=== PATIENT | female | born 1990 | race Caucasian/White ===

== ENCOUNTER → 2016-12-18 | Outpatient (CLI) | payer OTHER ==
--- NOTE | 2016-12-18 09:12 | US ---
EXAMINATION TYPE: US abdomen complete DATE OF EXAM: 12/18/2016 8:49 AM COMPARISON: 04/2015 CLINICAL HISTORY: R10.84 Abd Pain. Recent episode of pain with nausea for 2 days EXAM MEASUREMENTS: Liver Length: 21.4cm Gallbladder Wall: 0.1cm CBD: 0.4cm Spleen: 13.8cm Right Kidney: 10.5 x 5.0 x 4.7cm Left Kidney: 11.4 x 4.9 x 5.6cm TECHNOLOGIST IMPRESSION: Pancreas: slightly heterogeneous in appearance Liver: enlarged, coarse in appearance and difficult to penetrate Gallbladder: +NAE sign, multiple shadowing stones seen completely filling GB, no wall thickening Evidence for sonographic Adam's sign: no CBD: wnl Spleen: enlarged Right Kidney: wnl Left Kidney: wnl Upper IVC: wnl Abd Aorta: bifurcation gassed out, otherwise wnl IMPRESSION: 1. Wall echo shadow complex within the gallbladder. Correlate for large gallstone an acute cholecysti tis. 2. Fatty infiltration liver. Hepatomegaly is present.
== END | disposition home or self-care (01) ==
LOC: RADUSWWP 08:26
PROVIDERS: ATTEND Surgery
DX: K76.0 Fatty (change of) liver, not elsewhere classified (principal)
CPT/HCPCS: 76700

== ENCOUNTER 2017-01-14 08:12 | Day surgery (SDC) | payer OTHER ==
[2017-01-11 12:42] VITALS: BMI 36.0
[~2017-01-14 08:12] MED LIST: DEXAMETHASONE SOD PHOSPHATE 10 MG/ML 1 ML VIAL IV ONE; HEPARIN SODIUM,PORCINE 5,000 UNIT/ML 1 ML VIAL SQ ONE; LACTATED RINGERS 1,000 ML IV SCH; LIDOCAINE 1% 20 ML VIAL (10MG/ML) FOR IV START INTRADERMA PRN; MIDAZOLAM 2 MG/2 ML VIAL IV PRN; ONDANSETRON 4 MG/2 ML VIAL IVP ONE; SCOPOLAMINE 1.5MG/72HR PATCH TRANSDERM ONE; ceFAZolin 2 GM in SODIUM CHLORIDE 0.9% 100 ML IVPB ONE
[2017-01-14 08:37] LABS: Glucose,Whole Blood 211 mg/dL (75-99)
[2017-01-14] MEDS ORDERED: SUCCINYLCHOLINE CHLORIDE 100 MG/5 ML SYR IV ONE (09:10)
[2017-01-14] MEDS ORDERED: NEOSTIGMINE 1 MG/ML 10 ML VIAL ONE (09:10)
[2017-01-14] MEDS ORDERED: fentaNYL (PF) 50 MCG/ML 2 ML AMP ONE (09:10)
[2017-01-14] MEDS ORDERED: PROPOFOL 10 MG/ML 20 ML VIAL IV ONE (09:10)
[2017-01-14] MEDS ORDERED: MIDAZOLAM 2 MG/2 ML VIAL ONE (09:10)
[2017-01-14] MEDS ORDERED: LIDOCAINE 1% INJ 10MG/ML (20 ML MDV) ONE (09:10)
[2017-01-14] MEDS ORDERED: KETOROLAC 30 MG/ML 1 ML VIAL ONE (09:10)
[2017-01-14] MEDS ORDERED: ROCURONIUM BROMIDE 10 MG/ML 10 ML VIAL IV ONE (09:10)
[2017-01-14] MEDS ORDERED: ESMOLOL 100 MG/10 ML VIAL ONE (09:10)
[2017-01-14] MEDS ORDERED: GLYCOPYRROLATE 0.2 MG/ML 2 ML VIAL ONE (09:10)
[2017-01-14] MEDS ORDERED: BUPIVACAIN-EPI 0.25%-1:200,000 30 ML VIAL SQ ONE (09:38)
[2017-01-14 11:15] VITALS: RESP 16; TEMP 97.4
--- NOTE | 2017-01-14 11:20 | P.OP ---
Date of Procedure: 01/14/17 Preoperative Diagnosis: Acute cholecystitis Postoperative Diagnosis: Chronic cholecystitis Procedure(s) Performed: Robot assisted laparoscopic choelcystectomy Anesthesia: CHULA Surgeon: Talita Almonte Pathology: other Condition: stable Disposition: PACU Operative Findings: Chronic inflamation of the gall bladder Adhesion band in the left lower quadrant Hepatomegaly due to fatty liver Umbilical hernia with diastasis Description of Procedure: Patient is a 26-year-old female who presented with right upper quadrant pain and a clinical diagnosis of chronic cholecystitis was made. After appropriate informed consent and answering all the patient's questions patient taken the operating placement position and given general anesthesia with endotracheal intubation. After an unsuccessful attempt to use the Veress needle for insufflation at the infraumbilical region left upper quadrant was identified and OPTIVIEW technique was used to enter the abdominal cavity. Abdomen was insufflated to 15 mm of mercury. Three 8 mm ports were then placed for the robot in the left upper quadrant and right upper quadrant. The 5 mm port in the infraumbilical crease was replaced with a 12 mm port and a 5mm assist port was placed in the left lower quadrant. Once ports were then placed the patient was placed in appropriate position of left side down and reverse Trendelenburg. The robot was docked and Prograsp was taken in arm 3, [place] was taken and later replaced with bipolar fenestrated forceps in arm 2. Camera was through the 12 mm umbilical port site. And a hook cautery was taken in the arm 1. Gallbladder was retracted cephalad and superiorly. Inflammatory adhesions were taken down with the help of electrocautery. Appropriate critical view was obtained in cystic duct and artery were isolated. 2 clips proximally and 1 distally were plced in the artery and cystic duct and then and transected sharply with the help of scissors. The gallbladder was then taken off the gallbladder fossa with the help of electrocautery. There was inadvertent hole in the gallbladder which resulted in leakage of bile. All that was sucked dry. The abdomen was thoroughly irrigated and sucked dry. Gallbladder was then placed in Endo Catch bag and removed through 12 port site after undocking the robot. Abdomen was then again visualized and completely irrigated and sucked dry. 12 mm port site was closed with the help of a Wayne Sung under direct laparoscopic view using 0 Vicryl. At this point the procedure was terminated and all ports were removed. Local anesthesia infiltrated into the incisions skin was closed with 4-0 Monocryl and Dermabond was applied. Patient is tolerated the porcedure well with no complications. She was extubated and taken to recovery room in stable condition.
[2017-01-14 11:23] LABS: Glucose,Whole Blood 307 mg/dL (75-99)
[2017-01-14] MEDS ORDERED: INSULIN LISPRO (humaLOG) 300 UNIT/3 ML VIAL SQ ONE (11:37)
[2017-01-14] MEDS: HYDROmorphone 1 MG/ML 1 ML SYRINGE IVP PRN ×2 (11:43→11:59)
[2017-01-14] MEDS ORDERED: HYDROcodone/APAP 5-325MG 1 EACH TAB PO ONE (13:13)
[2017-01-14 13:15] LABS: Glucose,Whole Blood 306 mg/dL (75-99)
[2017-01-14 14:34] VITALS: BP 122/75; PULSE 71
== END 2017-01-14 15:05 | disposition home or self-care (01) ==
LOC: OR 08:12
PROVIDERS: ATTEND Surgery
DX: K80.10 Calculus of gallbladder with chronic cholecystitis without obstruction (principal); K66.0 Peritoneal adhesions (postprocedural) (postinfection); K76.0 Fatty (change of) liver, not elsewhere classified; K42.9 Umbilical hernia without obstruction or gangrene; R73.03 Prediabetes; Z79.899 Other long term (current) drug therapy; Z88.0 Allergy status to penicillin
CPT/HCPCS: 47562; S2900; 81025; 88304

== ENCOUNTER → 2017-01-20 | Outpatient (CLI) | payer OTHER ==
[2017-01-20 11:15] LABS: Basophils # (A) 0.1 k/uL (0-0.2); Basophils % (A) 1 %; CH 25.5; CHCM 31.4; Eosinophils # (A) 0.6 k/uL (0-0.7); Eosinophils % (A) 8 %; HCT 39.2 % (34.0-46.0); HDW 2.47; HGB 12.3 gm/dL (11.4-16.0); Hypochromasia Slight; Luc % (Auto) 2; Lymphocytes # (A) 1.9 k/uL (1.0-4.8); Lymphocytes % (A) 23 %; MCH 25.6 pg (25.0-35.0); MCHC 31.4 g/dL (31.0-37.0); MCV 81.6 fL (80.0-100.0); Mean Platelet Volume 8.3; Monocytes # (A) 0.4 k/uL (0-1.0); Monocytes % (A) 4 %; Neutrophils # (A) 5.2 k/uL (1.3-7.7); Neutrophils % (A) 62 %; RDW 13.8 % (11.5-15.5); WBC 8.4 k/uL (3.8-10.6); WBC (Perox) 8.63
[2017-01-20 11:35] LABS: ALT 52 U/L (9-52); AST 25 U/L (14-36); Alkaline Phosphatase 80 U/L (38-126); Anion Gap 13 mmol/L; Blood Urea Nitrogen 9 mg/dL (7-17); Calcium 9.6 mg/dL (8.4-10.2); Carbon Dioxide 25 mmol/L (22-30); Chloride 101 mmol/L (98-107); Cholesterol 228 mg/dL (<200); Glucose 229 mg/dL (74-99); HDL Cholesterol 54 mg/dL (40-60); Non-African American GFR(MDRD) >60 (>60 ml/min/1.73 sqM); Potassium 4.4 mmol/L (3.5-5.1); Sodium 139 mmol/L (137-145); Total Bilirubin 0.9 mg/dL (0.2-1.3); Triglycerides 224 mg/dL (<150)
== END | disposition home or self-care (01) ==
LOC: LABWHC1 10:53
PROVIDERS: ATTEND Nurse Practitioner Adult Health
DX: E11.9 Type 2 diabetes mellitus without complications (principal)
CPT/HCPCS: 36415; 80053; 80061; 84439; 84443; 85025

== ENCOUNTER 2017-06-04 04:12 | Emergency (ER) | payer OTHER ==
[2017-06-04 04:20] VITALS: BP 122/73; PULSE 78; RESP 18; TEMP 97.8
[2017-06-04] MEDS ORDERED: predniSONE 50 MG TAB PO STA (05:03)
[2017-06-04] MEDS ORDERED: LORATADINE 10 MG TAB PO STA (05:03)
--- NOTE | 2017-06-04 05:07 | ED ---
General Adult HPI - General Chief complaint: Skin/Abscess/Foreign Body Stated complaint: Itching Time Seen by Provider: 06/04/17 04:37 Source: patient, RN notes reviewed Mode of arrival: ambulatory Limitations: no limitations - History of Present Illness Initial comments: Patient is a pleasant 26-year-old female presenting to the emergency department complaining of rash. Rash is mostly on the arms and legs. Rash is pruritic. Patient states there was a stray cat in her basement. Patient has looked for bedbugs and has not noticed any. No history of similar problems previously. Patient is unclear what could be causing this. Patient states she cannot sleep because of itching. - Related Data Home Medications Medication Instructions Recorded Confirmed Sertraline [Zoloft] 50 mg PO DAILY 01/11/17 06/04/17 Previous Rx's Medication Instructions Recorded HYDROcodone/APAP 5-325MG [[place] 1 tab PO Q4HR PRN #18 tab 01/14/17 5-325] predniSONE 20 mg PO DAILY #5 tab 06/04/17 Allergies Allergy/AdvReac Type Severity Reaction Status Date / Time Penicillins Allergy Rash/Hives Verified 06/04/17 04:20 Review of Systems ROS Statement: Those systems with pertinent positive or pertinent negative responses have been documented in the HPI. ROS Other: All systems not noted in ROS Statement are negative. Constitutional: Denies: fever Eyes: Denies: eye pain ENT: Denies: ear pain Respiratory: Denies: cough Cardiovascular: Denies: chest pain Endocrine: Denies: fatigue Gastrointestinal: Denies: abdominal pain Genitourinary: Denies: dysuria Musculoskeletal: Denies: back pain Skin: Reports: rash, pruritus Neurological: Denies: headache Past Medical History Past Medical History: Diabetes Mellitus Additional Past Medical History / Comment(s): DIET CONTROL History of Any Multi-Drug Resistant Organisms: None Reported Past Surgical History: Section, Cholecystectomy Past Anesthesia/Blood Transfusion Reactions: No Reported Reaction Past Psychological History: Depression Smoking Status: Never smoker Past Alcohol Use History: None Reported Past Drug Use History: None Reported - Past Family History Mother History Unknown: Yes Family Medical History: No Reported History General Exam Limitations: no limitations General appearance: alert, in no apparent distress Head exam: Present: atraumatic Eye exam: Present: normal appearance ENT exam: Present: normal oropharynx Neck exam: Present: normal inspection Respiratory exam: Present: normal lung sounds bilaterally Cardiovascular Exam: Present: regular rate, normal rhythm GI/Abdominal exam: Present: soft. Absent: tenderness Extremities exam: Absent: pedal edema Neurological exam: Present: alert Psychiatric exam: Present: normal affect, normal mood Skin exam: Present: rash (Bilateral lower legs and upper arms with several areas of lesions each less than 3-4 mm. Some with central puncture.) Course Vital Signs 06/04/17 04:18 Temperature 97.8 F Pulse Rate 78 Respiratory 18 Rate Blood Pressure 122/73 O2 Sat by Pulse 99 Oximetry Medical Decision Making - Medical Decision Making Rash consistent with insect bites. Disposition Clinical Impression: Insect bite Disposition: HOME SELF-CARE Condition: Stable Instructions: Insect Bite or Sting (ED) Additional Instructions: Continue [id number] Claritin as needed. [id number] 1% hydrocortisone cream to affected area twice daily as needed. Return for fever, redness, increased rash, worsening symptoms or other concerns. Prescriptions: predniSONE 20 mg PO DAILY #5 tab Referrals: Alexi Ramos MD [Primary Care Provider] - 1-2 days Time of Disposition: 05:07
== END 2017-06-04 05:27 | disposition home or self-care (01) ==
LOC: EC 04:12
DX: S80.861A Insect bite (nonvenomous), right lower leg, initial encounter (principal); S80.862A Insect bite (nonvenomous), left lower leg, initial encounter; S40.861A Insect bite (nonvenomous) of right upper arm, initial encounter; S40.862A Insect bite (nonvenomous) of left upper arm, initial encounter; Z88.0 Allergy status to penicillin; Z79.899 Other long term (current) drug therapy; W57.XXXA Bitten or stung by nonvenomous insect and other nonvenomous arthropods, initial encounter
CPT/HCPCS: 99282; J7512

== ENCOUNTER 2018-03-13 22:43 | Emergency (ER) | payer OTHER ==
[2018-03-14] MEDS ORDERED: MAG HYDROX/AL HYDROX/SIMETH 30 ML, HYOSCYAMINE ELIXIR 10 ML, CIMETIDINE HCL 300 MG, LID... PO STA ×4 (00:14)
[2018-03-14] MEDS ORDERED: SODIUM CHLORIDE 0.9% 1,000 ML IV ONE (00:14)
[2018-03-14 01:10] LABS: Basophils % (A) 1 %; Eosinophils # (A) 0.2 k/uL (0-0.7); Eosinophils % (A) 3 %; HCT 36.9 % (34.0-46.0); Lymphocytes # (A) 2.3 k/uL (1.0-4.8); Lymphocytes % (A) 27 %; MCH 24.9 pg (25.0-35.0); MCHC 32.4 g/dL (31.0-37.0); MCV 76.9 fL (80.0-100.0); Mean Platelet Volume 8.9; Monocytes # (A) 0.4 k/uL (0-1.0); Monocytes % (A) 4 %; Neutrophils # (A) 5.6 k/uL (1.3-7.7); Neutrophils % (A) 65 %; Platelet Count 289 k/uL (150-450); RDW 14.6 % (11.5-15.5); WBC 8.7 k/uL (3.8-10.6)
[2018-03-14 01:27] LABS: ALT 31 U/L (9-52); AST 18 U/L (14-36); Albumin 4.2 g/dL (3.5-5.0); Alkaline Phosphatase 68 U/L (38-126); Amylase 64 U/L (30-110); Anion Gap 15 mmol/L; Blood Urea Nitrogen 14 mg/dL (7-17); Calcium 9.6 mg/dL (8.4-10.2); Carbon Dioxide 23 mmol/L (22-30); Chloride 103 mmol/L (98-107); Glucose 260 mg/dL (74-99); Lipase 135 U/L (23-300); Potassium 4.1 mmol/L (3.5-5.1); Sodium 141 mmol/L (137-145); Total Bilirubin 0.5 mg/dL (0.2-1.3); Total Protein 7.4 g/dL (6.3-8.2)
[2018-03-14 01:33] LABS: Creatine Kinase 68 U/L (30-135)
[2018-03-14 01:46] LABS: Creatine Kinase MB <0.2 ng/mL (0.0-2.4); Troponin I <0.012 ng/mL (0.000-0.034)
--- NOTE | 2018-03-14 02:16 | ED ---
Abdominal Pain HPI - General Chief Complaint: Abdominal Pain Stated Complaint: Upper Abdominal Pain, Chest Pain Time Seen by Provider: 03/14/18 00:00 Source: patient Mode of arrival: ambulatory Limitations: no limitations - History of Present Illness Initial Comments: 27-year-old female patient presents to the emergency department today for complaints of midepigastric abdominal pain. Patient states that this pain started approximately 2 hours ago. Patient states that she has taken 2 Zantac without relief of her symptoms. Patient states that the pain seems to be radiating up into her chest. Patient denies any shortness of breath this. States she is mildly nauseated. She denies any vomiting. Patient denies any radiation of the pain into her back. She denies any sweats, fever, or chills. Patient denies any recent rash, diarrhea, constipation, back pain, numbness, tingling, dizziness, weakness, hematuria, dysuria, urinary urgency, urinary frequency, headache, visual changes, or any other complaints. She denies any chance of . - Related Data Home Medications Medication Instructions Recorded Confirmed Sertraline [Zoloft] 50 mg PO DAILY 01/11/17 06/04/17 Previous Rx's Medication Instructions Recorded HYDROcodone/APAP 5-325MG [[place] 1 tab PO Q4HR PRN #18 tab 01/14/17 5-325] predniSONE 20 mg PO DAILY #5 tab 06/04/17 Ranitidine HCl [Zantac] 150 mg PO HS #30 tab 03/14/18 Allergies Allergy/AdvReac Type Severity Reaction Status Date / Time Penicillins Allergy Rash/Hives Verified 03/13/18 23:09 Review of Systems ROS Statement: Those systems with pertinent positive or pertinent negative responses have been documented in the HPI. ROS Other: All systems not noted in ROS Statement are negative. Past Medical History Past Medical History: Diabetes Mellitus Additional Past Medical History / Comment(s): DIET CONTROL History of Any Multi-Drug Resistant Organisms: None Reported Past Surgical History: Section, Cholecystectomy Past Anesthesia/Blood Transfusion Reactions: No Reported Reaction Past Psychological History: Depression Smoking Status: Never smoker Past Alcohol Use History: None Reported Past Drug Use History: None Reported - Past Family History Mother History Unknown: Yes Family Medical History: No Reported History General Exam Limitations: no limitations General appearance: alert, in no apparent distress, other (This is a well- developed, well-nourished adult female patient in no acute distress. Vital signs upon presentation are temperature 99.4F, pulse 94, respirations 18, blood pressure 127/76, pulse ox 95% on room air.) Eye exam: Present: normal appearance, PERRL, EOMI. Absent: scleral icterus, conjunctival injection, periorbital swelling ENT exam: Present: normal exam, normal oropharynx, mucous membranes moist Respiratory exam: Present: normal lung sounds bilaterally. Absent: respiratory distress, wheezes, rales, rhonchi, stridor Cardiovascular Exam: Present: regular rate, normal rhythm, normal heart sounds. Absent: systolic murmur, diastolic murmur, rubs, gallop, clicks GI/Abdominal exam: Present: soft, tenderness (Midepigastric tenderness), normal bowel sounds. Absent: distended, guarding, rebound, rigid Back exam: Absent: CVA tenderness (R), CVA tenderness (L) Neurological exam: Present: alert, oriented X3, CN II-XII intact Psychiatric exam: Present: normal affect, normal mood Skin exam: Present: warm, dry, intact, normal color. Absent: rash Course Vital Signs 03/13/18 03/14/18 03/14/18 23:06 01:00 02:32 Temperature 99.4 F 98.6 F Pulse Rate 94 77 73 Respiratory 18 16 18 Rate Blood Pressure 127/76 129/73 O2 Sat by Pulse 95 98 98 Oximetry Medical Decision Making - Medical Decision Making 27-year-old female patient presented to the emergency department today for evaluation of midepigastric abdominal pain. Physical examination did reveal some mild midepigastric tenderness. Labs reviewed and are unremarkable. Patient did have mild relief with GI cocktail. We did discuss possibility of gastritis versus peptic ulcer disease. She was instructed to avoid greasy, fatty, or spicy foods. We will start her on Zantac once daily. She is instructed follow up with gastroenterology for further evaluation. Return parameters discussed in detail. She verbalizes understanding and agrees with this plan. - Lab Data Result diagrams: 03/14/18 00:44 03/14/18 00:44 Lab Results 03/14/18 03/14/18 03/14/18 Range/Units 00:44 00:44 00:44 WBC 8.7 (3.8-10.6) k/uL RBC 4.80 (3.80-5.40) m/uL Hgb 12.0 (11.4-16.0) gm/dL Hct 36.9 (34.0-46.0) % MCV 76.9 L (80.0-100.0) fL MCH 24.9 L (25.0-35.0) pg MCHC 32.4 (31.0-37.0) g/dL RDW 14.6 (11.5-15.5) % Plt Count 289 (150-450) k/uL Neutrophils % 65 % Lymphocytes % 27 % Monocytes % 4 % Eosinophils % 3 % Basophils % 1 % Neutrophils # 5.6 (1.3-7.7) k/uL Lymphocytes # 2.3 (1.0-4.8) k/uL Monocytes # 0.4 (0-1.0) k/uL Eosinophils # 0.2 (0-0.7) k/uL Basophils # 0.0 (0-0.2) k/uL Sodium 141 (137-145) mmol/L Potassium 4.1 (3.5-5.1) mmol/L Chloride 103 (98-107) mmol/L Carbon Dioxide 23 (22-30) mmol/L Anion Gap 15 mmol/L BUN 14 (7-17) mg/dL Creatinine 0.60 (0.52-1.04) mg/dL Est GFR (CKD-EPI)AfAm >90 (>60 ml/min/1.73 sqM) Est GFR (CKD-EPI)NonAf >90 (>60 ml/min/1.73 sqM) Glucose 260 H (74-99) mg/dL Calcium 9.6 (8.4-10.2) mg/dL Total Bilirubin 0.5 (0.2-1.3) mg/dL AST 18 (14-36) U/L ALT 31 (9-52) U/L Alkaline Phosphatase 68 (38-126) U/L Total Creatine Kinase 68 (30-135) U/L CK-MB (CK-2) <0.2 (0.0-2.4) ng/mL CK-MB (CK-2) Rel Index Troponin I <0.012 (0.000-0.034) ng/mL Total Protein 7.4 (6.3-8.2) g/dL Albumin 4.2 (3.5-5.0) g/dL Amylase 64 (30-110) U/L Lipase 135 (23-300) U/L Disposition Clinical Impression: Epigastric pain Disposition: HOME SELF-CARE Condition: Good Instructions: Gastritis (ED), Abdominal Pain (ED) Additional Instructions: Take medications as directed. Follow-up with gastroenterology for evaluation as soon as possible. Return here immediately for any new, worsening, or concerning symptoms. Prescriptions: Ranitidine HCl [Zantac] 150 mg PO HS #30 tab Is patient prescribed a controlled substance at d/c from ED?: No Referrals: Alexi Ramos MD [Primary Care Provider] - 1-2 days Catherine Dalton MD [STAFF PHYSICIAN] - 1-2 days Time of Disposition: 02:16
[2018-03-14 02:33] VITALS: BP 129/73; PULSE 73; RESP 18; TEMP 98.6
== END 2018-03-14 02:32 | disposition home or self-care (01) ==
LOC: EC 22:43
DX: R10.13 Epigastric pain (principal); R07.9 Chest pain, unspecified; R11.0 Nausea; E11.9 Type 2 diabetes mellitus without complications; F32.9 Major depressive disorder, single episode, unspecified; Z79.899 Other long term (current) drug therapy; Z88.0 Allergy status to penicillin; Z90.49 Acquired absence of other specified parts of digestive tract
CPT/HCPCS: 36415; 80053; 82150; 82550; 82553; 83690; 84484; 85025; 93005; 96360; 99284

== ENCOUNTER 2019-09-12 20:36 | Emergency (ER) | payer OTHER ==
[2019-09-12 20:56] VITALS: RESP 18
[2019-09-12 20:58] LABS: Glucose,Whole Blood 153 mg/dL (75-99)
--- NOTE | 2019-09-12 21:22 | ED ---
General Adult HPI - General Chief complaint: Recheck/Abnormal Lab/Rx Stated complaint: Fever, Diabetic Time Seen by Provider: 09/12/19 20:56 Source: patient Mode of arrival: wheelchair Limitations: no limitations - History of Present Illness Initial comments: Patient is a 29-year-old, 4 week female presenting to the emergency department with chief complaint of a fever high blood sugar. Patient reports earlier today she developed sudden onset of chills, clear bilateral rhinorrhea with mild otalgia. Patient reports she went home and obtained of temperature which measured a fever. Patient reports taking Tylenol. She states that she also developed some mild left flank pain this seems to be exacerbated with some anatomical movements. Patient denies nausea vomiting or diarrhea. Patient denies any cough, chest pain or shortness of breath. Patient reports she has been exposed to sick people. Patient denies increased urgency frequency or dysuria. Patient denies any nausea or vomiting more to her baseline . - Related Data Home Medications Medication Instructions Recorded Confirmed Sertraline [Zoloft] 100 mg PO DAILY 02/05/19 09/12/19 Insulin Glargine,Hum.rec.anlog 25 unit SQ HS 09/12/19 09/12/19 [Lantus Solostar] Insulin Lispro [Admelog] See Protocol SQ AC-TID 09/12/19 09/12/19 Oov-Yiag-Detyo Acid 1 tab PO HS 09/12/19 09/12/19 [-U Capsule (formulary)] Previous Rx's Medication Instructions Recorded Cephalexin [Keflex] 500 mg PO Q6HR #40 cap 09/12/19 Allergies Allergy/AdvReac Type Severity Reaction Status Date / Time Penicillins Allergy Rash/Hives Verified 09/12/19 20:50 Review of Systems ROS Statement: Those systems with pertinent positive or pertinent negative responses have been documented in the HPI. ROS Other: All systems not noted in ROS Statement are negative. Past Medical History Past Medical History: Diabetes Mellitus Additional Past Medical History / Comment(s): DIET CONTROL History of Any Multi-Drug Resistant Organisms: None Reported Past Surgical History: Section, Cholecystectomy Past Anesthesia/Blood Transfusion Reactions: No Reported Reaction Past Psychological History: Depression Smoking Status: Never smoker Past Alcohol Use History: None Reported Past Drug Use History: None Reported - Past Family History Mother History Unknown: Yes Family Medical History: No Reported History General Exam Limitations: no limitations General appearance: alert, in no apparent distress Head exam: Present: atraumatic, normocephalic, normal inspection Eye exam: Present: normal appearance Pupils: Present: normal accommodation ENT exam: Present: normal exam, normal oropharynx, mucous membranes moist, TM's normal bilaterally, normal external ear exam Neck exam: Present: normal inspection, full ROM Respiratory exam: Present: normal lung sounds bilaterally Cardiovascular Exam: Present: regular rate, normal rhythm, normal heart sounds Extremities exam: Present: normal inspection, full ROM Back exam: Present: normal inspection, full ROM, CVA tenderness (L) (Very mild CVA tenderness) Neurological exam: Present: alert, oriented X3 Psychiatric exam: Present: normal affect, normal mood Skin exam: Present: warm, intact, normal color Course Vital Signs 09/12/19 09/12/19 20:50 22:53 Temperature 99.3 F 97.8 F Pulse Rate 120 H 104 H Respiratory 18 18 Rate Blood Pressure 106/73 119/64 O2 Sat by Pulse 98 97 Oximetry Medical Decision Making - Medical Decision Making Patient is a 29-year-old female presenting to emergency Department with a chief complaint of a fever and high blood sugar. Patient denies any urinary symptoms. UA is indicative of a urinary tract infection. Considering the patient is she will be treated for a UTI. Patient will be treated with Keflex. Chest x-ray is unremarkable. Patient is negative for influenza. CMP is indicative of mild hypokalemia. Patient given K-Roxana. Blood glucose is 150. No insulin is warranted at this time. Patient advised to follow-up with primary care. Strict return parameters were thoroughly discussed the patient was resting and agreeable. Case discussed with physician. - Lab Data Result diagrams: 09/12/19 21:42 09/12/19 21:42 Lab Results 09/12/19 09/12/19 09/12/19 Range/Units 20:57 21:42 21:42 WBC 7.9 (3.8-10.6) k/uL RBC 4.63 (3.80-5.40) m/uL Hgb 11.4 (11.4-16.0) gm/dL Hct 35.2 (34.0-46.0) % MCV 76.0 L (80.0-100.0) fL MCH 24.6 L (25.0-35.0) pg MCHC 32.4 (31.0-37.0) g/dL RDW 14.9 (11.5-15.5) % Plt Count 266 (150-450) k/uL Neutrophils % 83 % Lymphocytes % 11 % Monocytes % 3 % Eosinophils % 1 % Basophils % 1 % Neutrophils # 6.6 (1.3-7.7) k/uL Lymphocytes # 0.9 L (1.0-4.8) k/uL Monocytes # 0.2 (0-1.0) k/uL Eosinophils # 0.1 (0-0.7) k/uL Basophils # 0.1 (0-0.2) k/uL Microcytosis Slight Sodium 135 L (137-145) mmol/L Potassium 3.1 L (3.5-5.1) mmol/L Chloride 103 (98-107) mmol/L Carbon Dioxide 22 (22-30) mmol/L Anion Gap 10 mmol/L BUN 11 (7-17) mg/dL Creatinine 0.78 (0.52-1.04) mg/dL Est GFR (CKD-EPI)AfAm >90 (>60 ml/min/1.73 sqM) Est GFR (CKD-EPI)NonAf >90 (>60 ml/min/1.73 sqM) Glucose 157 H (74-99) mg/dL POC Glucose (mg/dL) 153 H (75-99) mg/dL POC Glu [employer] ID Sherly Ramos Calcium 9.4 (8.4-10.2) mg/dL Total Bilirubin 0.8 (0.2-1.3) mg/dL AST 24 (14-36) U/L ALT 39 (9-52) U/L Alkaline Phosphatase 73 (38-126) U/L Total Protein 7.4 (6.3-8.2) g/dL Albumin 4.0 (3.5-5.0) g/dL HCG, Quant 7010.7 mIU/mL Urine Color Urine Appearance (Clear) Urine pH (5.0-8.0) Ur Specific [place] (1.001-1.035) Urine Protein (Negative) Urine Glucose (UA) (Negative) Urine Ketones (Negative) Urine Blood (Negative) Urine Nitrite (Negative) Urine Bilirubin (Negative) Urine Urobilinogen (<2.0) mg/dL Ur Leukocyte Esterase (Negative) Urine RBC (0-5) /hpf Urine WBC (0-5) /hpf Ur Squamous Epith Cells (0-4) /hpf Urine Bacteria (None) /hpf Urine Mucus (None) /hpf Influenza Type A RNA (Not Detectd) Influenza Type B (PCR) (Not Detectd) 09/12/19 09/12/19 Range/Units 21:42 21:42 WBC (3.8-10.6) k/uL RBC (3.80-5.40) m/uL Hgb (11.4-16.0) gm/dL Hct (34.0-46.0) % MCV (80.0-100.0) fL MCH (25.0-35.0) pg MCHC (31.0-37.0) g/dL RDW (11.5-15.5) % Plt Count (150-450) k/uL Neutrophils % % Lymphocytes % % Monocytes % % Eosinophils % % Basophils % % Neutrophils # (1.3-7.7) k/uL Lymphocytes # (1.0-4.8) k/uL Monocytes # (0-1.0) k/uL Eosinophils # (0-0.7) k/uL Basophils # (0-0.2) k/uL Microcytosis Sodium (137-145) mmol/L Potassium (3.5-5.1) mmol/L Chloride (98-107) mmol/L Carbon Dioxide (22-30) mmol/L Anion Gap mmol/L BUN (7-17) mg/dL Creatinine (0.52-1.04) mg/dL Est GFR (CKD-EPI)AfAm (>60 ml/min/1.73 sqM) Est GFR (CKD-EPI)NonAf (>60 ml/min/1.73 sqM) Glucose (74-99) mg/dL POC Glucose (mg/dL) (75-99) mg/dL POC Glu [employer]ist ID Calcium (8.4-10.2) mg/dL Total Bilirubin (0.2-1.3) mg/dL AST (14-36) U/L ALT (9-52) U/L Alkaline Phosphatase (38-126) U/L Total Protein (6.3-8.2) g/dL Albumin (3.5-5.0) g/dL HCG, Quant mIU/mL Urine Color Yellow Urine Appearance Cloudy H (Clear) Urine pH 5.5 (5.0-8.0) Ur Specific [place] 1.013 (1.001-1.035) Urine Protein Negative (Negative) Urine Glucose (UA) Trace H (Negative) Urine Ketones 1+ H (Negative) Urine Blood Negative (Negative) Urine Nitrite Negative (Negative) Urine Bilirubin Negative (Negative) Urine Urobilinogen 3.0 (<2.0) mg/dL Ur Leukocyte Esterase Large H (Negative) Urine RBC 1 (0-5) /hpf Urine WBC 44 H (0-5) /hpf Ur Squamous Epith Cells 4 (0-4) /hpf Urine Bacteria Rare H (None) /hpf Urine Mucus Rare H (None) /hpf Influenza Type A RNA Not Detected (Not Detectd) Influenza Type B (PCR) Not Detected (Not Detectd) Disposition Clinical Impression: Urinary tract infection Disposition: HOME SELF-CARE Condition: Stable Instructions (If sedation given, give patient instructions): Abdominal Pain (ED) Additional Instructions: Please take prescribed medication as directed. Please follow-up with primary care. Please return to emergency department if symptoms worsen. Prescriptions: Cephalexin [Keflex] 500 mg PO Q6HR #40 cap Is patient prescribed a controlled substance at d/c from ED?: No Referrals: Alexi Ramos MD [Primary Care Provider] - 1-2 days Time of Disposition: 22:35
--- NOTE | 2019-09-12 21:39 | XR ---
EXAMINATION TYPE: XR chest 2V DATE OF EXAM: 09/12/2019 COMPARISON: 02/05/2019 HISTORY: Fever TECHNIQUE: Frontal and lateral views of the chest are obtained. FINDINGS: Heart and mediastinum are normal. Lungs are clear. Diaphragm is normal. Bony thorax appear s normal. IMPRESSION: Normal chest. No change.
[2019-09-12 21:52] LABS: Basophils # (A) 0.1 k/uL (0-0.2); Basophils % (A) 1 %; Eosinophils # (A) 0.1 k/uL (0-0.7); Eosinophils % (A) 1 %; HCT 35.2 % (34.0-46.0); HGB 11.4 gm/dL (11.4-16.0); Lymphocytes # (A) 0.9 k/uL (1.0-4.8); Lymphocytes % (A) 11 %; MCH 24.6 pg (25.0-35.0); MCHC 32.4 g/dL (31.0-37.0); Mean Platelet Volume 8.5; Microcytosis Slight; Monocytes # (A) 0.2 k/uL (0-1.0); Monocytes % (A) 3 %; Neutrophils # (A) 6.6 k/uL (1.3-7.7); Neutrophils % (A) 83 %; Platelet Count 266 k/uL (150-450); RBC 4.63 m/uL (3.80-5.40); RDW 14.9 % (11.5-15.5); WBC 7.9 k/uL (3.8-10.6)
[2019-09-12 21:58] LABS: ALT 39 U/L (9-52); AST 24 U/L (14-36); African American GFR (CKD) >90 (>60 ml/min/1.73 sqM); Alkaline Phosphatase 73 U/L (38-126); Anion Gap 10 mmol/L; Appearance,Urine Cloudy (Clear); Bacteria,Urine Rare /hpf; Bilirubin,Urine Negative (Negative); Blood Urea Nitrogen 11 mg/dL (7-17); Blood,Urine Negative (Negative); Calcium 9.4 mg/dL (8.4-10.2); Carbon Dioxide 22 mmol/L (22-30); Chloride 103 mmol/L (98-107); Color,Urine Yellow; Glucose 157 mg/dL (74-99); Glucose,Urine (UA) Trace (Negative); Ketones,Urine 1+ (Negative); Leukocyte Esterase,Urine Large (Negative); Mucus,Urine Rare /hpf; Nitrite,Urine Negative (Negative); PH, Urine 5.5 (5.0-8.0); Potassium 3.1 mmol/L (3.5-5.1); Protein,Urine Negative (Negative); RBC,Urine 1 /hpf (0-5); Sodium 135 mmol/L (137-145); Specific Gravity,Urine 1.013 (1.001-1.035); Squamous Epithelial Cell,Urine 4 /hpf (0-4); Total Bilirubin 0.8 mg/dL (0.2-1.3); Total Protein 7.4 g/dL (6.3-8.2)
[2019-09-12] MEDS ORDERED: POTASSIUM CHLORIDE ER 20 MEQ TAB.ER PO STA (22:08)
[2019-09-12 22:15] LABS: HCG,Quantitative Serum 7010.7 mIU/mL
[2019-09-12 22:54] VITALS: BP 119/64; PULSE 104; TEMP 97.8
== END 2019-09-12 22:57 | disposition home or self-care (01) ==
LOC: EC 20:36
DX: O23.41 Unspecified infection of urinary tract in pregnancy, first trimester (principal); O99.281 Endocrine, nutritional and metabolic diseases complicating pregnancy, first trimester; E87.6 Hypokalemia; O99.810 Abnormal glucose complicating pregnancy; E11.65 Type 2 diabetes mellitus with hyperglycemia; O99.341 Other mental disorders complicating pregnancy, first trimester; F32.9 Major depressive disorder, single episode, unspecified; Z79.4 Long term (current) use of insulin; Z79.899 Other long term (current) drug therapy; Z88.0 Allergy status to penicillin; Z90.49 Acquired absence of other specified parts of digestive tract; Z3A.01 Less than 8 weeks gestation of pregnancy
CPT/HCPCS: 36415; 71046; 80053; 81001; 84702; 85025; 87077; 87086; 87186; 87502; 99285

== ENCOUNTER 2019-11-04 19:54 | Emergency (ER) | payer OTHER ==
[2019-11-04] MEDS ORDERED: SODIUM CHLORIDE 0.9% 1,000 ML IV STA (20:41)
[2019-11-04] MEDS ORDERED: METOCLOPRAMIDE 5 MG/ML 2 ML VIAL IVP STA (21:08)
[2019-11-04] MEDS ORDERED: diphenhydrAMINE 50 MG/ML 1 ML VIAL IVP STA (21:09)
[2019-11-04 21:22] LABS: Basophils % (A) 0 %; Eosinophils % (A) 0 %; HCT 36.5 % (34.0-46.0); HGB 11.9 gm/dL (11.4-16.0); Lymphocytes # (A) 1.3 k/uL (1.0-4.8); Lymphocytes % (A) 11 %; MCH 25.3 pg (25.0-35.0); MCHC 32.5 g/dL (31.0-37.0); MCV 77.8 fL (80.0-100.0); Mean Platelet Volume 9.7; Microcytosis Slight; Monocytes # (A) 0.5 k/uL (0-1.0); Monocytes % (A) 5 %; Neutrophils # (A) 9.7 k/uL (1.3-7.7); Neutrophils % (A) 83 %; Platelet Count 310 k/uL (150-450); RDW 15.9 % (11.5-15.5); WBC 11.7 k/uL (3.8-10.6)
[2019-11-04 21:32] LABS: ALT 17 U/L (4-34); AST 17 U/L (14-36); African American GFR (CKD) >90 (>60 ml/min/1.73 sqM); Albumin 4.4 g/dL (3.5-5.0); Alkaline Phosphatase 81 U/L (38-126); Anion Gap 12 mmol/L; Blood Urea Nitrogen 6 mg/dL (7-17); Calcium 10.1 mg/dL (8.4-10.2); Carbon Dioxide 21 mmol/L (22-30); Chloride 102 mmol/L (98-107); Glucose 104 mg/dL (74-99); Non-African American GFR(CKD) >90 (>60 ml/min/1.73 sqM); Potassium 4.1 mmol/L (3.5-5.1); Sodium 135 mmol/L (137-145); Total Protein 8.1 g/dL (6.3-8.2)
[2019-11-04 21:48] LABS: Appearance,Urine Clear (Clear); Bilirubin,Urine Negative (Negative); Blood,Urine Negative (Negative); Color,Urine Yellow; Glucose,Urine (UA) Negative (Negative); Hyaline Casts,Urine 1 /lpf (0-2); Ketones,Urine Negative (Negative); Leukocyte Esterase,Urine Small (Negative); Mucus,Urine Many /hpf; Nitrite,Urine Negative (Negative); Protein,Urine 1+ (Negative); RBC,Urine <1 /hpf (0-5); Squamous Epithelial Cell,Urine 4 /hpf (0-4); Urobilinogen,Urine <2.0 mg/dL (<2.0); WBC,Urine 8 /hpf (0-5)
--- NOTE | 2019-11-04 23:13 | US ---
EXAMINATION TYPE: Transabdominal DATE OF EXAM: 11/04/2019 10:44 PM COMPARISON: NONE CLINICAL HISTORY: back pain. Vomiting EXAM PERFORMED: Transabdominal (TA) EXAM MEASUREMENTS: GESTATIONAL AGE / DATING Physician Established: (13 weeks/5 days) EDC: 05/06/2020 Dates by LMP: (13 weeks/5 days) EDC: 05/06/2020 Dates by First Scan: No previous this is first scan Dates by Current Scan for: (13 weeks/4 days) EDC: 05/07/2020 MATERNAL ANATOMY Uterus: 14.3 x 6.5 x 12.0 cm Right Ovary: 3.5 x 2.3 x 2.9 cm Left Ovary: 2.1 x 1.5 x 1.5 cm Post CDS / Adnexa: wnl Presence of free fluid: no Presence of corpus luteal cyst: no Presence of subchorionic bleed: no GESTATION / SURVEY CRL: 7.41 cm (13 weeks/4 days) Heart Rate: 157 bpm Rhythm: Normal IUP: Viable IUP Beta HcG (if available): Not available at this time IMPRESSION: Single living intrauterine fetus. No complicating process seen.
[2019-11-04 23:28] VITALS: BP 110/72; PULSE 107; RESP 14
[2019-11-04] MEDS ORDERED: ACETAMINOPHEN TAB 500 MG TAB PO STA (23:38)
--- NOTE | 2019-11-04 23:48 | ED ---
General Adult HPI - General Source: patient, RN notes reviewed Mode of arrival: ambulatory Limitations: no limitations <Damien Lynch - Last Filed: 11/04/19 23:38> <Diane Nelson - Last Filed: 11/06/19 23:25> - General Chief complaint: Nausea/Vomiting/Diarrhea Stated complaint: Flank pain Time Seen by Provider: 11/04/19 20:48 - History of Present Illness Initial comments: 29-year-old female with a past medical history of diabetes mellitus presents to the emergency department for chief complaint of nausea vomiting. Patient states she has had nausea and vomiting for the past day. States she has not been able to keep much down. Patient states that she has not had any diarrhea. She does not have any abdominal pain. Patient has mild back pain. She denies any cough congestion sore throat. Patient is currently about 13 weeks . She is a female. Denies fevers or chills. Patient has no other complaints at this time including shortness of breath, chest pain, abdominal pain, headache, or visual changes. (Damien Lynch) - Related Data Home Medications Medication Instructions Recorded Confirmed Sertraline [Zoloft] 100 mg PO DAILY 02/05/19 09/12/19 Insulin Glargine,Hum.rec.anlog 25 unit SQ HS 09/12/19 09/12/19 [Lantus Solostar] Insulin Lispro [Admelog] See Protocol SQ AC-TID 09/12/19 09/12/19 Grg-Lwev-Hessq Acid 1 tab PO HS 09/12/19 09/12/19 [-U Capsule (formulary)] Previous Rx's Medication Instructions Recorded Cephalexin [Keflex] 500 mg PO Q6HR #40 cap 09/12/19 Cephalexin [Keflex] 500 mg PO Q6HR 7 Days #28 cap 11/04/19 Metoclopramide [Reglan] 10 mg PO TID PRN #20 tab 11/04/19 Allergies Allergy/AdvReac Type Severity Reaction Status Date / Time Penicillins Allergy Rash/Hives Verified 11/04/19 19:57 Review of Systems ROS Other: All systems not noted in ROS Statement are negative. <Damien Lynch - Last Filed: 11/04/19 23:38> ROS Other: All systems not noted in ROS Statement are negative. <Diane Nelson Sybil - Last Filed: 11/06/19 23:25> ROS Statement: Those systems with pertinent positive or pertinent negative responses have been documented in the HPI. Past Medical History Past Medical History: Diabetes Mellitus Additional Past Medical History / Comment(s): DIET CONTROL History of Any Multi-Drug Resistant Organisms: None Reported Past Surgical History: Section, Cholecystectomy Past Anesthesia/Blood Transfusion Reactions: No Reported Reaction Past Psychological History: Depression Smoking Status: Never smoker Past Alcohol Use History: None Reported Past Drug Use History: None Reported - Past Family History Mother History Unknown: Yes Family Medical History: No Reported History <Damien Lynch - Last Filed: 11/04/19 23:38> General Exam Limitations: no limitations General appearance: alert, in no apparent distress Head exam: Present: atraumatic, normocephalic, normal inspection Eye exam: Present: normal appearance, PERRL, EOMI. Absent: scleral icterus, conjunctival injection, periorbital swelling ENT exam: Present: normal exam, mucous membranes moist Neck exam: Present: normal inspection, full ROM. Absent: tenderness, meningismus, lymphadenopathy Respiratory exam: Present: normal lung sounds bilaterally. Absent: respiratory distress, wheezes, rales, rhonchi, stridor Cardiovascular Exam: Present: regular rate, normal rhythm, normal heart sounds. Absent: systolic murmur, diastolic murmur, rubs, gallop, clicks GI/Abdominal exam: Present: soft, normal bowel sounds. Absent: distended, tenderness, guarding, rebound, rigid Neurological exam: Present: alert <Damien Lynch - Last Filed: 11/04/19 23:38> Course Vital Signs 11/04/19 11/04/19 11/05/19 19:57 23:27 00:26 Temperature 98.1 F 101.4 F H 100.9 F H Pulse Rate 117 H 107 H Respiratory 18 14 Rate Blood Pressure 110/58 110/72 O2 Sat by Pulse 99 99 Oximetry Medical Decision Making - Lab Data Result diagrams: 11/04/19 20:10 11/04/19 20:10 <Damien Lynch - Last Filed: 11/04/19 23:38> - Lab Data Result diagrams: 11/04/19 20:10 11/04/19 20:10 <Diane Nelson - Last Filed: 11/06/19 23:25> - Medical Decision Making CBC shows mild leukocytosis of 11.7. CMP is unremarkable. Patient has small urinary tract infection noted. Will be treated with Keflex. Patient initially afebrile. However discharge vitals did reveal a temperature of 101.4. Patient does not have any abdominal pain or vaginal discharge. She does not have cough or congestion. She does not have any other source of fever. Likely viral in nature. I did discuss Tylenol for symptom relief as well as Reglan for nausea at home. I recommended that patient follow up closely with her primary care provider. I recommended she return here to the emergency Department if she has any worsening symptoms (Damien Lynch) I was available for consultation in the emergency department. The history and physical exam was performed by the midlevel provider. I reviewed the case with the midlevel provider and based on their presentation of the patient, I agree with the diagnosis and treatment plan. (Diane Nelson) - Lab Data Lab Results 11/04/19 11/04/19 11/04/19 Range/Units 20:10 20:10 21:10 WBC 11.7 H (3.8-10.6) k/uL RBC 4.70 (3.80-5.40) m/uL Hgb 11.9 (11.4-16.0) gm/dL Hct 36.5 (34.0-46.0) % MCV 77.8 L (80.0-100.0) fL MCH 25.3 (25.0-35.0) pg MCHC 32.5 (31.0-37.0) g/dL RDW 15.9 H (11.5-15.5) % Plt Count 310 (150-450) k/uL Neutrophils % 83 % Lymphocytes % 11 % Monocytes % 5 % Eosinophils % 0 % Basophils % 0 % Neutrophils # 9.7 H (1.3-7.7) k/uL Lymphocytes # 1.3 (1.0-4.8) k/uL Monocytes # 0.5 (0-1.0) k/uL Eosinophils # 0.0 (0-0.7) k/uL Basophils # 0.0 (0-0.2) k/uL Microcytosis Slight Sodium 135 L (137-145) mmol/L Potassium 4.1 (3.5-5.1) mmol/L Chloride 102 (98-107) mmol/L Carbon Dioxide 21 L (22-30) mmol/L Anion Gap 12 mmol/L BUN 6 L (7-17) mg/dL Creatinine 0.54 (0.52-1.04) mg/dL Est GFR (CKD-EPI)AfAm >90 (>60 ml/min/1.73 sqM) Est GFR (CKD-EPI)NonAf >90 (>60 ml/min/1.73 sqM) Glucose 104 H (74-99) mg/dL Calcium 10.1 (8.4-10.2) mg/dL Total Bilirubin 1.0 (0.2-1.3) mg/dL AST 17 (14-36) U/L ALT 17 (4-34) U/L Alkaline Phosphatase 81 (38-126) U/L Total Protein 8.1 (6.3-8.2) g/dL Albumin 4.4 (3.5-5.0) g/dL Urine Color Yellow Urine Appearance Clear (Clear) Urine pH 6.0 (5.0-8.0) Ur Specific Tavares 1.020 (1.001-1.035) Urine Protein 1+ H (Negative) Urine Glucose (UA) Negative (Negative) Urine Ketones Negative (Negative) Urine Blood Negative (Negative) Urine Nitrite Negative (Negative) Urine Bilirubin Negative (Negative) Urine Urobilinogen <2.0 (<2.0) mg/dL Ur Leukocyte Esterase Small H (Negative) Urine RBC <1 (0-5) /hpf Urine WBC 8 H (0-5) /hpf Ur Squamous Epith Cells 4 (0-4) /hpf Hyaline Casts 1 (0-2) /lpf Urine Mucus Many H (None) /hpf Disposition Is patient prescribed a controlled substance at d/c from ED?: No Time of Disposition: 23:44 <Damien Lynch P - Last Filed: 11/04/19 23:38> <Diane Nelson - Last Filed: 11/06/19 23:25> Clinical Impression: Nausea and vomiting Disposition: HOME SELF-CARE Condition: Good Instructions (If sedation given, give patient instructions): Acute Nausea and Vomiting (ED) Additional Instructions: Please take reglan as needed for nausea. Take Keflex for UTI. Please follow up with primary care in 1-2 days. Follow up with [facility] as well. Return to the ER if you have any worsening symptoms. Prescriptions: Cephalexin [Keflex] 500 mg PO Q6HR 7 Days #28 cap Metoclopramide [Reglan] 10 mg PO TID PRN #20 tab PRN Reason: Vomiting Referrals: Alexi Ramos MD [Primary Care Provider] - 1-2 days
[2019-11-05 00:50] VITALS: TEMP 100.9
== END 2019-11-05 00:26 | disposition home or self-care (01) ==
LOC: EC 19:54
DX: O21.9 Vomiting of pregnancy, unspecified (principal); O23.41 Unspecified infection of urinary tract in pregnancy, first trimester; O24.311 Unspecified pre-existing diabetes mellitus in pregnancy, first trimester; O99.341 Other mental disorders complicating pregnancy, first trimester; F32.9 Major depressive disorder, single episode, unspecified; Z79.4 Long term (current) use of insulin; Z79.899 Other long term (current) drug therapy; Z88.0 Allergy status to penicillin; Z3A.13 13 weeks gestation of pregnancy
CPT/HCPCS: 36415; 80053; 85025; 81001; 76801; 99284; 96374; 96361 ×3; J2765

== ENCOUNTER 2023-03-21 15:33 | Emergency (ER) | payer OTHER ==
[2023-03-21 15:46] VITALS: TEMP 98.7
[2023-03-21] MEDS ORDERED: KETOROLAC 15 MG/ML 1 ML VIAL IM STA (16:11)
[2023-03-21] MEDS ORDERED: HYDROcodone/APAP 5-325MG 1 EACH TAB PO STA (16:11)
[2023-03-21] MEDS ORDERED: MUPIROCIN 2% OINT 22 GM TUBE TOPICAL ONE (16:11)
[2023-03-21] MEDS ORDERED: ACET/COD 300 MG/30 MG STARTER PACK 6 TAB BTL PO STA (16:22)
[2023-03-21] MEDS ORDERED: IBUPROFEN 600 MG STARTER PACK 4 TAB BTL PO STA (16:22)
--- NOTE | 2023-03-21 16:24 | ED ---
Burn/Smoke HPI - General Chief complaint: Burn/Smoke Inhalation Stated complaint: L HAND BURN Time Seen by Provider: 03/21/23 15:59 Source: patient, RN notes reviewed Mode of arrival: ambulatory Limitations: no limitations - History of Present Illness Initial comments: This is a 32 year old female who presents to the emergency department for a burn to the left hand. States that she grabbed a hot bowl at work earlier today around 1-2pm. Afterwards she soaked her hand in ice water, which was helpful. States that she continues to have pain to the finger pads and has noticed a blister to two of the fingers. Reports that the fingers feel tight in association with the pain. Tetanus status is up-to-date. Denies any fevers, chills, sore throat, cough, dyspnea, chest pain, palpitations, abdominal pain, nausea, vomiting, diarrhea, back pain, or headaches. MD Complaint: burn - Related Data Home Medications Medication Instructions Recorded Confirmed Sertraline [Zoloft] 100 mg PO DAILY 02/05/19 09/12/19 Insulin Glargine,Hum.rec.anlog 25 unit SQ HS 09/12/19 09/12/19 [Lantus Solostar] Insulin Lispro [Admelog] See Protocol SQ AC-TID 09/12/19 09/12/19 Jbw-Bghh-Feqrr Acid 1 tab PO HS 09/12/19 09/12/19 [-U Capsule (formulary)] Previous Rx's Medication Instructions Recorded Cephalexin [Keflex] 500 mg PO Q6HR #40 cap 09/12/19 Cephalexin [Keflex] 500 mg PO Q6HR 7 Days #28 cap 11/04/19 Metoclopramide [Reglan] 10 mg PO TID PRN #20 tab 11/04/19 Ibuprofen 800 mg PO Q6HR PRN #20 tablet 03/29/22 Ondansetron Odt [Zofran Odt] 4 mg PO Q8HR PRN #10 tab 03/29/22 Allergies Allergy/AdvReac Type Severity Reaction Status Date / Time Penicillins Allergy Rash/Hives Verified 03/30/22 10:01 Review of Systems ROS Statement: Those systems with pertinent positive or pertinent negative responses have been documented in the HPI. ROS Other: All systems not noted in ROS Statement are negative. 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 History of Any Multi-Drug Resistant Organisms: None Reported Past Surgical History: Section, Cholecystectomy Past Anesthesia/Blood Transfusion Reactions: No Reported Reaction Past Psychological History: Anxiety, Depression Past Alcohol Use History: None Reported, Rare Past Drug Use History: Marijuana, None Reported - Past Family History Mother History Unknown: Yes Family Medical History: No Reported History General Exam Limitations: no limitations General appearance: alert, in no apparent distress Head exam: Present: atraumatic, normocephalic, normal inspection Respiratory exam: Present: normal lung sounds bilaterally. Absent: respiratory distress, wheezes, rales, rhonchi, stridor Cardiovascular Exam: Present: regular rate, normal rhythm, normal heart sounds. Absent: systolic murmur, diastolic murmur, rubs, gallop, clicks Neurological exam: Present: alert, oriented X3, CN II-XII intact Psychiatric exam: Present: normal affect, normal mood Skin exam: Present: other (Superficial davis to the pads of fingers 2 through 5 of the left hand. Small 2mm blisters to the posterior aspect of fingers 3 and 4 on the left hand.) Course Vital Signs 03/21/23 03/21/23 15:43 17:00 Temperature 98.7 F Pulse Rate 84 76 Respiratory 20 16 Rate Blood Pressure 120/82 115/84 O2 Sat by Pulse 98 99 Oximetry Medical Decision Making - Medical Decision Making This is a 32-year-old female who presents to the emergency department for a burn to the left hand. Was pt. sent in by a medical professional or institution? @ -No Did you speak to anyone other than the patient for history? @ -No Did you review nursing and triage notes? @ -Yes, and I agree, it is accurate with regards to the patient's symptoms. Were old charts reviewed? @ -No Differential Diagnosis? @ -Not applicable What testing was considered but not performed? (CT, X-rays, U/S, labs)? Why? @ -None What meds were considered but not given? Why? @ -None Did you discuss the management of the patient with other professionals? @ -No Did you reconcile home meds? @ -No Was smoking cessation discussed for >3mins.? @ -No Was critical care preformed (if so, how long)? @ -No Were there social determinants of health that impacted care today? How? (Homelessness, low income, unemployed, alcoholism, drug addiction, transportation, low edu. Level, literacy, decrease access to med. care, assisted, rehab)? @ -No Was there de-escalation of care discussed even if they declined? (Discuss DNR or withdrawal of care, Hospice)? @ -No What co-morbidities impacted this encounter? (DM, HTN, Smoking, COPD, CAD, Cancer, CVA, Hep., AIDS, mental health diagnosis, sleep apnea, morbid obesity)? @ -None Was patient admitted / discharged? @ -Discharged. Physical examination consistent with a superficial thickness burn. Tetanus status is up to date. Pain was controlled the emergency department. Advised alternating with ibuprofen and Tylenol at home for additional relief. Mupirocin ointment was applied to the affected areas and the hand was bandaged accordingly. Wound care was reviewed. She'll otherwise continue with supportive care and follow-up with her primary care provider. Undiagnosed new problem with uncertain prognosis? @ -None Drug Therapy requiring intensive monitoring for toxicity (Heparin, Nitro, Insulin, Cardizem)? @ -None Were any procedures done? @ -None Diagnosis/symptom? @ -Superficial thickness burn of left hand Acute, or Chronic, or Acute on Chronic? @ -Acute Uncomplicated (without systemic symptoms) or Complicated (systemic symptoms)? @ -Uncomplicated Side effects of treatment? @ -None Exacerbation, Progression, or Severe Exacerbation] @ -Not applicable Poses a threat to life or bodily function? @ -No Return precautions reviewed in depth, the patient is instructed to return to the emergency department with any new, worsening, or concerning symptoms. Patient verbalized understanding. This case was discussed in detail with the attending ED physician, Dr. Hobbs. Presentation, findings, and treatment plan discussed in detail as well. Disposition Clinical Impression: Superficial burn of left hand Disposition: HOME SELF-CARE Instructions (If sedation given, give patient instructions): Superficial Burn (ED) Additional Instructions: Return to the emergency department with any new, worsening, or concerning symptoms. Alternate with ibuprofen and Tylenol as needed for discomfort. You can keep the hand wrapped and use topical antibiotic ointment. Follow up with your primary care provider in 1-2 days. Is patient prescribed a controlled substance at d/c from ED?: No Referrals: Onufrak,Myrna, [facility] [REFERRING] - 1-2 days
[2023-03-21 17:03] VITALS: BP 115/84; PULSE 76; RESP 16
== END 2023-03-21 17:06 | disposition home or self-care (01) ==
LOC: EC 15:33
DX: T23.232A Burn of second degree of multiple left fingers (nail), not including thumb, initial encounter (principal); E11.9 Type 2 diabetes mellitus without complications; F32.A Depression, unspecified; F41.9 Anxiety disorder, unspecified; F12.90 Cannabis use, unspecified, uncomplicated; Z79.4 Long term (current) use of insulin; Z79.899 Other long term (current) drug therapy; Z88.0 Allergy status to penicillin; Z90.49 Acquired absence of other specified parts of digestive tract; X19.XXXA Contact with other heat and hot substances, initial encounter
CPT/HCPCS: 99283; 96372; J1885

== ENCOUNTER → 2023-04-13 | Outpatient (CLI) | payer OTHER ==
--- NOTE | 2023-04-13 16:56 | P.SLEEP ---
History of Present Illness H&P Date: 04/13/23 This is a 32-year-old female patient was referred to me for sleep apnea evaluation. The patient has family members who have been suffering from sleep apnea. The patient reports that his sleep is fragmented. She has loud snoring and she has occasionally awaken herself from sleep because of a loud snorer. She is been feeling excessively fatigued and sleepy during the day. 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 The patient is trying to lose weight and she has lost approximately 20 pounds over this past one year. She goes to bed around 10 PM, wakes up 8 AM in the morning. She wakes up not refreshed during the day. She has an Henrietta score of 12. Her sleep is broken and fragmentation and she wakes up multiple times in the middle of the night. She is a mouth breather. The patient is able to function at work. She is now falling sleep during day-to-day activities. She does not fall asleep while talking to other individuals. No history of any motor vehicle accident because of feeling drowsy or sleepy. Nevertheless, she clearly think that there is a problem with her sleep quality. No anxiety. No depression. No grinding of the teeth. No panic attacks. No palpitations or heartburn. No sweating. No sleepwalking or sleep talking. She smokes occasionally marijuana to calm herself down and promote sleep. Review of Systems Constitutional: Reports fatigue, Reports weight gain Eyes: denies as per HPI, denies blurred vision, denies bulging eye, denies decreased vision, denies diplopia, denies discharge, denies dry eye, denies irr itation, denies itching, denies pain, denies photophobia, denies loss of peripheral vision, denies loss of vision, denies tunnel vision/blind spots Ears: deny: decreased hearing, ear discharge, earache, tinnitus Breasts: absent: as per HPI, change in shape, gynecomastia, masses, nipple discharge, pain, skin changes, swelling Cardiovascular: Reports as per HPI Respiratory: Reports snoring Gastrointestinal: Reports as per HPI Genitourinary: Reports as per HPI Menstruation: Reports as per HPI Musculoskeletal: Reports as per HPI Musculoskeletal: absent: ankle pain, ankle stiffness, ankle swelling Integumentary: Reports as per HPI Neurological: Reports as per HPI Psychiatric: Reports as per HPI, Reports sleep disturbances Endocrine: Reports as per HPI Hematologic/Lymphatic: Reports as per HPI Allergic/Immunologic: Reports as per HPI Past Medical History Past Medical History: Diabetes Mellitus, Hyperlipidemia Additional Past Medical History / Comment(s): HPV, hyperlipidemia, chronic anxiety, chronic depression, acid reflux, hypertension, obesity History of Any Multi-Drug Resistant Organisms: None Reported Past Surgical History: Section, Cholecystectomy Past Anesthesia/Blood Transfusion Reactions: No Reported Reaction Past Psychological History: Anxiety, Depression Past Alcohol Use History: None Reported, Rare Past Drug Use History: Marijuana, None Reported - Past Family History Mother History Unknown: Yes Family Medical History: No Reported History Medications and Allergies Home Medications Medication Instructions Recorded Confirmed Type Sertraline [Zoloft] 100 mg PO DAILY 02/05/19 09/12/19 History Cephalexin [Keflex] 500 mg PO Q6HR #40 cap 09/12/19 Rx Insulin Glargine,Hum.rec.anlog 25 unit SQ HS 09/12/19 09/12/19 History [Lantus Solostar] Insulin Lispro [Admelog] See Protocol SQ AC-TID 09/12/19 09/12/19 History Dib-Vcse-Pxtic Acid 1 tab PO HS 09/12/19 09/12/19 History [-U Capsule (formulary)] Cephalexin [Keflex] 500 mg PO Q6HR 7 Days #28 cap 11/04/19 Rx Metoclopramide [Reglan] 10 mg PO TID PRN #20 tab 11/04/19 Rx Ibuprofen 800 mg PO Q6HR PRN #20 tablet 03/29/22 Rx Ondansetron Odt [Zofran Odt] 4 mg PO Q8HR PRN #10 tab 03/29/22 Rx Allergies Allergy/AdvReac Type Severity Reaction Status Date / Time Penicillins Allergy Rash/Hives Verified 03/30/22 10:01 Physical Exam BP is 114/75 with a pulse of 81 and the respiration of 16 with a temperature of 98.4 and a pulse ox is 99 200% on room air oxygen. Weight is 159 pounds. Body mass index is 29.2. Henrietta score is at 12. Side of the neck is 14 inches. The patient appeared well nourished and normally developed. Vital signs as documented. Head exam is unremarkable. No scleral icterus or corneal arcus noted. Neck is without jugular venous distension, thyromegaly, or carotid bruits. The patient is a Mallampati class IV with significant crowding of posterior pharynx. Carotid upstrokes are brisk bilaterally. Lungs are clear to auscultation and percussion. Cardiac exam reveals the PMI to be normally sized and situated. Rhythm is regular. First and second heart sounds normal. No murmurs, rubs or gallops. Abdominal exam reveals normal bowel sounds, no masses, no organomegaly and no aortic enlargement. Extremities are nonedematous and both femoral and pedal pulses are normal.Examination of the skin revealed no evidence of significant rashes, suspicious appearing nevi or other concerning lesions.Neurologically, the patient is awake and alert and the patient does not have any focal neurological deficit. Cranial nerves are essentially intact. Assessment and Plan Plan: Chronic hypersomnia, Henrietta score of 12. Increased suspicion for obstructive sleep apnea the patient also has loud snoring, sleep fragmentation along with chronic fatigue and tiredness and sleepiness during the day. Loud snoring Sleep fragmentation Diabetes mellitus type 2 Chronic anxiety/depression Hyperlipidemia Hypertension Obesity with a body mass index of 29.2 Acid reflux Plan There is a reasonably high suspicion for this patient having obstructive sleep apnea. Based on that, his clinic polysomnogram will be done. Encourage losing weight Maintain regular sleep hygiene measures Maintain regular sleep schedule Optimize comorbidities We'll continue to follow make further recommendations based on the results of the sleep study. Therefore polysomnography will be obtained. Sleep Note - Sleep Note Sleep Note: Temperature: Pulse Rate: Respiratory Rate: Blood Pressure: SpO2: Height: Weight: BMI: Neck Circumference:
== END ==
LOC: 3 N SLEEP 14:50
PROVIDERS: ATTEND Internal Medicine Critical Care Medicine
DX: G47.33 Obstructive sleep apnea (adult) (pediatric) (principal); E11.9 Type 2 diabetes mellitus without complications; E78.5 Hyperlipidemia, unspecified; I10 Essential (primary) hypertension; F32.A Depression, unspecified; F41.9 Anxiety disorder, unspecified; Z88.0 Allergy status to penicillin; R06.83 Snoring; Z79.4 Long term (current) use of insulin
CPT/HCPCS: 99211

== ENCOUNTER 2025-02-19 18:35 | Emergency (ER) | payer OTHER ==
[2025-02-19 18:44] VITALS: TEMP 98.1
[2025-02-19] MEDS: ALPRAZolam 0.25 MG TAB PO STA (20:36)
--- NOTE | 2025-02-19 21:32 | ED ---
Psych HPI - General Source: patient, family Mode of arrival: ambulatory <Phoebe Curtis - Last Filed: 02/19/25 21:41> <Rosalio Devine - Last Filed: 02/22/25 12:18> - General Chief Complaint: Psychiatric Symptoms Stated Complaint: Mental Health Eval. Time Seen by Provider: 02/19/25 18:49 - History of Present Illness Initial Comments: 34F presenting to ED with ericka for anxiety. She went to due to need for help and was given Hydroxyzine and Paxil. She was at the hospital and given Xanax which she stated made her loopy. Hydroxyzine helps with nerves but states she has felt cramp like sensations at work and felt that she is on autopilot at home with difficulty with ADLs such as heating a premade dinner for her children along with driving her vehicle due to emotional instability. She states she spends all day crying and states she has an intermittent sleep schedule throughout the day. States stressful symptoms have built up with her fiance being out of work ; planning an upcoming wedding this summer. 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 Fionesimo states the patient has had relief when wearing a warm blanket and states she was given 0.5mg of Xanax at hospital Wednesday. Denies Heart problems, palpitations, arrhythmias. (Phoebe Curtis) - Related Data Home Medications Medication Instructions Recorded Confirmed Sertraline [Zoloft] 100 mg PO DAILY 02/05/19 09/12/19 Insulin Glargine,Hum.rec.anlog 25 unit SQ HS 09/12/19 09/12/19 [Lantus Solostar] Insulin Lispro [Admelog] See Protocol SQ AC-TID 09/12/19 09/12/19 Myh-[id number] Acid 1 tab PO HS 09/12/19 09/12/19 [-U Capsule (formulary)] Previous Rx's Medication Instructions Recorded Cephalexin [Keflex] 500 mg PO Q6HR #40 cap 09/12/19 Cephalexin [Keflex] 500 mg PO Q6HR 7 Days #28 cap 11/04/19 Metoclopramide [Reglan] 10 mg PO TID PRN #20 tab 11/04/19 Ibuprofen 800 mg PO Q6HR PRN #20 tablet 03/29/22 Ondansetron Odt [Zofran Odt] 4 mg PO Q8HR PRN #10 tab 03/29/22 ALPRAZolam [Xanax] 0.25 mg PO DAILY #4 tab 02/19/25 Allergies Allergy/AdvReac Type Severity Reaction Status Date / Time Penicillins Allergy Rash/Hives Verified 03/30/22 10:01 Review of Systems ROS Other: All systems not noted in ROS Statement are negative. Psychiatric: Reports: anxiety. Denies: homicidal thoughts, suicidal thoughts <CurtisPhoebe - Last Filed: 02/19/25 21:41> ROS Other: All systems not noted in ROS Statement are negative. <Rosalio Devine - Last Filed: 02/22/25 12:18> ROS Statement: Those systems with pertinent positive or pertinent negative responses have been documented in the HPI. Past Medical History Past Medical History: Diabetes Mellitus, Hyperlipidemia Additional Past Medical History / Comment(s): HPV, hyperlipidemia, chronic anxiety, chronic depression, acid reflux, hypertension, obesity History of Any Multi-Drug Resistant Organisms: None Reported Past Surgical History: Section, Cholecystectomy Past Anesthesia/Blood Transfusion Reactions: No Reported Reaction Past Psychological History: Anxiety, Depression Past Alcohol Use History: None Reported, Rare Past Drug Use History: Marijuana, None Reported - Past Family History Mother History Unknown: Yes Family Medical History: No Reported History <Phoebe Curtis Last Filed: 02/19/25 21:41> General Exam Limitations: no limitations General appearance: alert, anxious Respiratory exam: Present: normal lung sounds bilaterally. Absent: respiratory distress, wheezes Cardiovascular Exam: Present: normal rhythm, tachycardia GI/Abdominal exam: Present: soft. Absent: distended, tenderness Psychiatric exam: Present: anxious. Absent: homicidal ideation, suicidal ideation Skin exam: Present: warm, dry, intact <KirstenPhoebe - Last Filed: 02/19/25 21:41> Course Vital Signs 02/19/25 02/19/25 18:41 21:39 Temperature 98.1 F Pulse Rate 106 H 99 Respiratory 20 18 Rate Blood Pressure 134/96 115/78 O2 Sat by Pulse 98 99 Oximetry Medical Decision Making <KirstenPhoebe - Last Filed: 02/19/25 21:41> <Rosalio Devine - Last Filed: 02/22/25 12:18> - Medical Decision Making Was pt. sent in by a medical professional or institution (RAHEEM Maria, DIRECTOR OF PRECLINICAL RESEARCH, urgent care, hospital, or longterm...) When possible be specific @ -No Did you speak to anyone other than the patient for history (EMS, parent, family, police, friend...)? What history was obtained from this source @ -No Did you review nursing and triage notes (agree or disagree)? Why? @ -I reviewed and agree with nursing and triage notes Were old charts reviewed (outside hosp., previous admission, EMS record, old EKG, old radiological studies, urgent care reports/EKG's, longterm records)? Report findings @ -No old charts were reviewed Differential Diagnosis? @ -Differential Mental Health Depression, anxiety, bipolar, psychosis, schizophrenia, borderline personality, situational depression, adjustment disorder, behavioral disorder, brain tumor, malingering, substance abuse, encephalopathy, medication reaction, dementia, hypothyroidism, degenerative neurologic disorder, lupus.... This is not meant to be all-inclusive list EKG interpreted by me (3pts min.). @ -As above X-rays interpreted by me (1pt min.). @ -None done CT interpreted by me (1pt min.). @ -None done U/S interpreted by me (1pt. min.). @ -None done What testing was considered but not performed or refused? (CT, X-rays, U/S, labs)? Why? @ -None What meds were considered but not given or refused? Why? @ -None Did you discuss the management of the patient with other professionals (professionals i.e. RAHEEM Maria, DIRECTOR OF PRECLINICAL RESEARCH, lab, RT, psych nurse, high school social studies teacher, diamond polisher, teacher, press officer, outsole caser)? Give summary @ -Case was discussed with ED attending Dr. Devine. Was smoking cessation discussed for >3mins.? @ -No Was critical care preformed (if so, how long)? @ -No Were there social determinants of health that impacted care today? How? (Homelessness, low income, unemployed, alcoholism, drug addiction, transportation, low edu. Level, literacy, decrease access to med. care, fci, rehab)? @ -No Was there de-escalation of care discussed even if they declined (Discuss DNR or withdrawal of care, Hospice)? DNR status @ -No What co-morbidities impacted this encounter? (DM, HTN, Smoking, COPD, CAD, Cancer, CVA, ARF, Chemo, Hep., AIDS, mental health diagnosis, sleep apnea, morbid obesity)? @ -None Was patient admitted / discharged? Hospital course, mention meds given and route, prescriptions, significant lab abnormalities, going to OR and other pertinent info. @ -Patient received 1 dose of Xanax in the hospital and symptoms improved remarkably. Patient will be discharged home with self-care. Undiagnosed new problem with uncertain prognosis? @ -No Drug Therapy requiring intensive monitoring for toxicity (Heparin, Nitro, Insulin, Cardizem)? @ -No Were any procedures done? @ -No Diagnosis/symptom? @ -Anxiety Acute, or Chronic, or Acute on Chronic? @ -Acute Uncomplicated (without systemic symptoms) or Complicated (systemic symptoms)? @ -Uncomplicated Side effects of treatment? @ -No Exacerbation, Progression, or Severe Exacerbation? @ -No Poses a threat to life or bodily function? How? (Chest pain, [place], [place], pneumonia, PE, COPD, DKA, ARF, appy, cholecystitis, CVA, Diverticulitis, Homicidal, Suicidal, threat to staff... and all critical care pts) @ -No (Phoebe Curtis) I personally saw the patient and performed the critical portion of the service. I discussed the patient care with the resident Dr. Curtis. I directed management, care planning and final disposition of the patient. This includes, but not limited to, review of all lab work, radiological studies, EKG's, consultations, vital signs, and nursing notes. EKG interpreted by me (3pts min.) @As above X-Rays interpreted by me (1 pt min.) @None CT interpreted by me ( 1pt min.) @None U/S interpreted by me (1 pt min.) @None Critical care time of 0 minutes excluding separately billable procedures was spent in conjunction with critical care activities provided by the Resident and Attending simultaneously. I was present during no procedures for all critical portions of the procedure and as immediately available to furnish service during the entire procedure. (Rosalio Devine) Disposition Is patient prescribed a controlled substance at d/c from ED?: Yes When asked, does pt state using other controlled substances?: No If prescribed controlled substance>3 days was MAPS reviewed?: Prescribed <3 Days Time of Disposition: 21:30 <Phoebe Curtis - Last Filed: 02/19/25 21:41> <Rosalio Devine - Last Filed: 02/22/25 12:18> Clinical Impression: Acute anxiety Disposition: HOME SELF-CARE Additional Instructions: Patient will be discharged home with self-care. Patient to follow-up with PCP in 1 to 2 days. Patient to return to ER if symptoms worsen or persist. Prescriptions: ALPRAZolam [Xanax] 0.25 mg PO DAILY #4 tab Referrals: Alexi Ramos MD [Primary Care Provider] - 1-2 days
[2025-02-19 21:39] VITALS: BP 115/78; PULSE 99; RESP 18
== END 2025-02-19 21:39 | disposition home or self-care (01) ==
LOC: EC 18:35
DX: F41.9 Anxiety disorder, unspecified (principal); Z88.0 Allergy status to penicillin
CPT/HCPCS: 99284